=== PATIENT | male | born 1950 | race Caucasian/White ===

== ENCOUNTER 2016-08-08 06:10 | Day surgery (SDC) | payer SELFPAY ==
[2016-08-08] VITALS (8 sets, daily range): BP systolic 137–173; BP diastolic 65–88; PULSE 55–61; TEMP 36.9–37; O2SAT 96–98; Ht 177.8 cm; Wt 77.5 kg
[~2016-08-08] VITALS: Ht 177.8 cm; Wt 77.5 kg
[~2016-08-08 06:10] MED LIST: ACET-1256 PO; ASPCH81X PO; ATOR-26 PO; CEFAZOLIN 1000MG/55 ML D5W IV SCH; GLUCTAB18 PO; MISC-573; MULT-506 PO; NICO21DI12 TD; OXYC-57 PO; SODIUM CHLORIDE 0.9% 1000ML IV SCH; augmentin PO
--- NOTE | 2016-08-08 06:55 | History and Physical ---
History & Physical Date of Service Aug 08, 2016. History & Physical CC: Stenosis right fem post tib bypass HPI: Mr. Medina had a right femoral to distal bypass last November. In follow up he was found to have decreased LAQUITA's and a stenosis in his graft. He is admitted for intervention for graft preservation. He denies any other complaints at this time including headaches, fevers, chills, dizziness, chest pain, shortness of breath, abdominal pain, nausea, vomiting, diarrhea, constipation, dysuria, hematuria, or other complaints. ALLERGIES: INCLUDE SODIUM BISULFATE. His home medications are reconciled on the chart and include the following: Augmentin 500/125. His past surgical history is essentially negative. His past medical history is positive for atherosclerosis. His family history is positive for stroke in his brother. His social history is positive for tobacco use. He has been smoking 1-1/2 packs a day for the past 48 years, although he has been trying to quit since his appointment at the [facility] last week where he was advised to do so. He has approximately 3 beers per week and denies any drug use. The patient's review of systems is negative for fatigue, fevers, sweats, weight loss, abnormal moles. He denies vision changes or photophobia, ear pain, sinus problems or sore throat, cough, shortness of breath, hemoptysis, wheezing, chest pain, palpitations or syncope. He does admit to edema of his right lower extremity. Denies abdominal pain, nausea, vomiting, diarrhea, constipation, muscle weakness, headaches, dizziness, numbness or seizures. On physical exam, his vital signs today were as follows: Blood pressure 156/64 in the left arm, 152/70 in the right arm, heart rate is 71, oxygenation of 96% on room air. The patient is 70 inches tall and weighs 145 pounds. Constitutional: In general, the patient is a healthy for age-appearing, well- nourished, well-developed elderly male in no acute distress. He ambulates slowly without assistance and is active, alert and oriented x4 with a normal recent and remote memories. His head is normocephalic and atraumatic. His eyes are EOMI. His ENMT exam demonstrates no hearing loss, rhinorrhea or pharyngeal erythema. His neck is supple, nontender with midline trachea without masses or crepitus. His lung exam demonstrates no dyspnea. They are decreased somewhat throughout, but clear to auscultation bilaterally. His cardiovascular exam demonstrates a nondisplaced apical impulse with a regular rate and rhythm without murmurs, lifts, heaves, thrills or gallops. His peripheral pulses are full and equal in all extremities unless otherwise noted. Specifically they are normal in his carotid, brachial, radial and femoral pulses. His left foot demonstrates +2 DP and PT pulses. His right foot demonstrates a palpable PT and DP of +1. He has capillary refill in all toes, but is somewhat delayed. He has no bruits in his carotid, abdominal or femoral areas. Abdomen is soft, nontender with normoactive bowel sounds in all 4 quadrants without guarding or rebound. There is no flank or CVA tenderness. He has no pulsatile masses appreciable. His musculoskeletal exam demonstrates normal tone and strength for age. His bilateral upper extremities demonstrate no cyanosis, edema, clubbing, varicosities or ulcers. Neurologically, the patient has grossly intact cranial nerves and grossly intact sensation. ASSESSMENT AND PLAN: Stenosis of right lower extremity bypass. Plan: Patient is admitted for a right lower extremity arteriogram with possible intervention. I have discussed the risks options and benefits of the procedure with the patient. The patient understands the risks options and benefits and agrees to the procedure.
[2016-08-08] MEDS ORDERED: NICO1DIS9 (06:58)
[2016-08-08 07:55] LABS: CREATININE 0.68 mg/dl (0.60-1.40)
--- NOTE | 2016-08-08 08:36 | Procedure Note ---
Pre-Mod Sedation Assessment General Date of Moderate Sedation: Aug 08, 2016. Vital Signs: Vital Signs Past 12 Hours Date Time Temp Pulse Resp B/P Pulse Ox O2 Delivery O2 Flow Rate FiO2 08/08/16 07:02 37 61 20 173/88 96 Room Air Pre-Sedation Airway Assessment Smoking Status: Former Smoker Mallampati Classification: Class I ASA Classification: Class II Notes The planned sedation has been discussed with the patient and consent obtained. I have identified the patient, determined the appropriateness of sedation and have assessed the patient immediately prior to the procedure. All medicine(s) and interventions are by my order.
--- NOTE | 2016-08-08 08:36 | History & Physical Bridge Note ---
H&P Re-Evaluation Bridge Note: I have examined the patient, reviewed the History & Physical and in the interval since the performance of the History & Physical I have noted the following changes of clinical significance: No changes noted
[2016-08-08] MEDS ORDERED: HEPARIN SOD (PORCINE) 1000 UNIT/ML 10 ML VIAL ONE (08:45)
[2016-08-08] MEDS ORDERED: MIDAZOLAM HCL 1 MG/ML 2ML VIAL ONE (08:45)
[2016-08-08] MEDS ORDERED: FENTANYL CITRATE INJ 50 MCG/1 ML 2 ML VIAL ONE (08:45)
[2016-08-08] MEDS ORDERED: MIDAZOLAM HCL 1 MG/ML 2ML VIAL IV ONE (09:24)
[2016-08-08] MEDS ORDERED: FENTANYL CITRATE INJ 50 MCG/1 ML 2 ML VIAL IV ONE ×3 (09:24→10:08)
[2016-08-08] MEDS ORDERED: LIDOCAINE HCL 1% 20 ML VIAL INFIL ONE (09:30)
[2016-08-08] MEDS ORDERED: HEPARIN SOD (PORCINE) 1000 UNIT/ML 10 ML VIAL IV ONE (09:30)
[2016-08-08] MEDS ORDERED: IODIXANOL (VISIPAQUE) 270 MG/ML 150ML IV ONE (10:26)
[2016-08-08] MEDS ORDERED: SODIUM CHLORIDE 0.9% 1000ML 1,000 ML IV SCH (10:39)
--- NOTE | 2016-08-08 10:42 | Procedure Note ---
Post-Moderate Sedation Plan General Date of Moderate Sedation Aug 08, 2016. Vital Signs: Vital Signs Past 12 Hours Date Time Temp Pulse Resp B/P Pulse Ox O2 Delivery O2 Flow Rate FiO2 08/08/16 08:53 37.0 61 20 173/88 96 Room Air 08/08/16 07:02 37 61 20 173/88 96 Room Air Review - Discharge Plan Post Moderate Sedation Plan: On clinical assessment, the patient appears to have tolerated the conscious sedation without complications. Patient is recovering as anticipated. Patient will continue to be monitored by nursing and may be discharged when conscious sedation discharge criteria are met.
--- NOTE | 2016-08-08 10:43 | [facility] Post Operative Brief Note ---
Immediate Operative Summary Operative Date Aug 08, 2016. Pre-Operative Diagnosis Stenosis Right Femoral Post Tib Bypass Post-Operative Diagnosis Same Procedure(s) Performed Right Lower Extremity Angiogram, Percutaneous Transluminal Angioplasty of the Right Posterior Tibial Artery and Femoral Distal Bypass Graft. Mechanical Clousure of Left Femoral Artery Moderate Sedation from [id number] -[id number] Kerns Ecmo Specialist Surgeon(s) None Estimated Blood Loss 10 Findings long segment stenosis of graft and occluded PT Specimens None Anesthesia Local with moderate conscious sedation Complication(s) None Disposition
[2016-08-08] MEDS ORDERED: CLOP1TAB5 PO (10:44)
[2016-08-08] MEDS ORDERED: OXYCODONE/ACETAMINOPHEN 5-325 TAB PO PRN (10:45)
--- NOTE | 2016-08-08 10:45 | Discharge Instructions ---
Discharge Instructions Visit Reason for Visit: Peripheral Artery Disease Discharge Discharge Diagnosis / Problem: Stenosis of right femoral poterior tibial bypass Discharge Goals Goal(s): Therapeutic intervention Activity Recommendations Activity Limitations: per Instructions/Follow-up section Anesthesia . Post Anesthesia Instructions: If you have had General Anesthesia or IV Sedation: * Do not drive today. * Resume driving when surgeon permits. * Do not make important decisions or sign legal documents today. * Call surgeon for: 1. Temperature elevations greater than 101 degrees F. 2. Uncontrollable pain. 3. Excessive bleeding. 4. Persistent nausea and vomiting. 5. Medication intolerance (nausea, vomiting or rash). * For nausea and vomiting use only clear liquids such as: tea, soda, bouillon until nausea subsides, then gradually increase diet as tolerated. * If you have any concerns or questions, call your surgeon's office. If physician is unavailable and it is an emergency, call 911 or go to the nearest emergency room. . Instructions / Follow-Up Instructions / Follow-Up Call [phone] to schedule a follow up appointment if one not already scheduled. SPECIAL CARE INSTRUCTIONS: Medications: * Continue to take your medications as directed. If you have been given a prescription for Plavix, please fill it immediately and take as directed. Incision Care: * Your puncture site may have some bruising and minor swelling for about one week. * You will have a small dressing covering your puncture site. You may remove the dressing after 24 hours and shower. You may let the warm soapy water run over it, but be sure to dry the puncture site well and keep it dry. * DO NOT IMMERSE THE INCISION IN A TUB/POOL/etc. UNTIL HEALED. * Puncture sites should be kept covered with a band-aid until it begins to heal. Restrictions: * Depending on whether you leg or arm was punctured to access the arteries, you will be required to lay flat, hold your arm still, or both, for about 4 hours after the procedure to prevent bleeding. * Limit your activity for the first 48 hours. You may walk and go up and down steps. Avoid excessive bending or movement at the puncture site. Possible Complications: * Excessive Swelling - after blood flow is improved you may notice increased swelling in the lower legs. This is a normal response. This usually depends on the amount of blockages in the leg, how long they have been there prior to your procedure and how much blood flow was restored. Elevating your legs will help to improve this. Please notify our office ([phone] ) if the swelling does not go away after lying in bed overnight. * Infection/Drainage/Bleeding - Drainage or bleeding from the puncture site should be minimal. If you have excessive bleeding or drainage, call our office ([phone]) right away. * Pain - You may experience some mild pain or soreness at your puncture site. If your pain does not improve, please contact our office ([phone]). Call your doctor and seek emergent treatment if you develop: * Temperature above 101 degrees * Any fever or chills * Any redness or purulent drainage from the puncture site * Any new dusky/blue colored toes or feet with coolness or sharp or aching pain. SKIN IRRITATION: * You may experience some redness and/or swelling in the area where radiation was administered. If any skin irritation occurs, please contact your family physician. FOLLOW UP VISIT: Keep any scheduled doctor appointments. Diet Recommendations Recommended Home Diet: resume previous diet Procedures Procedures Performed: Right Lower Extremity Angiogram, Percutaneous Transluminal Angioplasty of the Right Posterior Tibial Artery and Femoral Distal Bypass Graft. Mechanical Clousure of Left Femoral Artery Moderate Sedation from 0924 -1025 Pending Studies Studies pending at discharge: no Medical Emergencies . Who to Call and When: Medical Emergencies: If at any time you feel your situation is an emergency, please call 911 immediately. . Non-Emergent Contact Non-Emergency issues call your: Surgeon . . "Provider Documentation" section prepared by Humza Kerns.
[2016-08-08] MEDS ORDERED: CLOPIDOGREL BISULFATE 300 MG TAB PO STA ×2 (10:48→10:56)
--- NOTE | 2016-08-08 11:13 | DIAGNOSTIC IMAGING REPORT ---
DATE OF PROCEDURE: 08/08/2016 PREOPERATIVE DIAGNOSIS: Stenosis of right femoral to posterior tibial bypass. POSTOPERATIVE DIAGNOSIS: Same with occluded posterior tibial artery. PROCEDURE: Right lower extremity arteriography, balloon angioplasty of posterior tibial artery and femoral posterior tibial bypass, mechanical closure of the left common femoral artery, moderate conscious sedation 61 minutes. SURGEON: Dr. Kerns. ANESTHETIC: Local with moderate conscious sedation. PROCEDURE INDICATIONS: The patient is a 66-year-old gentleman with a femoral posterior tibial bypass. He was found to have a stenosis of the distal end with decreased indices. Arteriography intervention was recommended. He understood the risks, options and benefits and agreed to go ahead with this procedure. The patient was taken to the angio suite and placed in supine position. After groins were prepped and draped in a sterile manner, local anesthetic was administered. Percutaneous puncture was made of the left common femoral artery and a 5-Monegasque sheath was inserted. Using an 0.035 wire the right side was cannulated from the left. The rim catheter was then advanced down the common femoral artery. Arteriography was performed. This showed the common profunda and origin of the fem-posterior tibial bypass to be widely patent. The bypass could be seen down to the mid thigh at which point there is no further flow except out a side branch. There was reconstitution of the anterior tibial, which fed the foot. Posterior tibial and peroneal appeared to be occluded. We were able to get a wire through into the graft. The wire passed fairly easily all the way down into the posterior tibial artery to the ankle. We then advanced the catheter down into in the mid portion of the graft. The graft appeared very stenotic throughout. We decided to try to balloon this area. Being that the posterior tibial appeared occluded we brought the balloon down to where it reconstituted. We used a 2 x 200 balloon and ballooned the posterior tibial artery in its entirety up into the bypass graft. We then used a 4 x 200 balloon and dilated the bypass graft. On completion, there was sluggish flow through the graft. The distal 2/3 of the graft appeared to contain a large amount of hyperplasia and irregular stenoses throughout. Posterior tibial artery; however looked good and was patent from the anastomoses down to the ankle. I did not think placing stents in this entire bypass graft would be benefited. The patient has no complaints of claudication. We therefore stopped the procedure at this point. There was flow going through the graft down through the posterior tibial artery; however, again the distal 2/3 of the graft was fairly small compared to the proximal. It was approximately 3 mm in size to the more proximal section in the upper third, which was about 6 mm in size. Doppler signals in the ankle were better at the end of the procedure. The patient was given 300 of Plavix. The destination sheath which was exchanged in the beginning was brought over to the left side. Hand injection showed it to be in the common femoral artery anteriorly. An 0.035 wire was reinserted and the puncture site was then closed using a Star closure device. Sterile dressings were then applied to the wound. The patient left the angio suite in good condition and tolerated the procedure well.
== END 2016-08-08 13:48 | disposition home or self-care (01) ==
LOC: C.ACU 06:10
PROVIDERS: ATTEND Surgery Vascular Surgery
DX: T82.858A Stenosis of other vascular prosthetic devices, implants and grafts, initial encounter (principal); I73.9 Peripheral vascular disease, unspecified; Y84.8 Other medical procedures as the cause of abnormal reaction of the patient, or of later complication, without mention of misadventure at the time of the procedure; F17.210 Nicotine dependence, cigarettes, uncomplicated